=== PATIENT | female | born 1965 | race Hispanic/Latino ===

== ENCOUNTER → 2017-06-10 | Emergency (ER) ==
--- OUTSIDE RECORDS SUMMARY | 2017-06-10 05:03 | XMS REPORT ---
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 Allergies, Adverse Reactions, Alerts This patient has no known allergies or adverse reactions. Medications This patient has no known medications. Encounters Start Date/Time End Date/Time Encounter Type Admission Type Attending [facility] Care Department Encounter ID 2017-08-27 00:00:00 2017-08-27 00:00:00 Outpatient [facility] [id number] 2017-07-18 00:00:00 2017-07-18 00:00:00 Outpatient [facility] [id number] 2017-07-05 00:00:00 2017-07-05 00:00:00 Outpatient [facility] [id number] 2017-05-09 00:00:00 2017-05-09 00:00:00 Outpatient [facility] [id number] 2017-05-03 00:00:00 2017-05-03 00:00:00 Outpatient [facility] [id number] 2017-04-25 11:12:46 2017-04-25 11:12:46 Outpatient [facility] [id number] 2017-04-09 00:00:00 2017-04-09 00:00:00 Outpatient [facility] [id number] 2017-04-02 08:00:00 2017-04-02 08:00:00 Outpatient [facility] [id number] 2017-03-27 00:00:00 2017-03-27 00:00:00 Outpatient [facility] [id number] 2017-02-27 00:00:00 2017-02-27 00:00:00 Outpatient [facility] [id number] 2017-02-21 00:00:00 2017-02-21 00:00:00 Outpatient [facility] [id number] 2017-02-19 13:22:02 2017-02-19 13:22:02 Outpatient [facility] [id number] 2017-01-16 07:41:48 2017-01-16 07:41:48 Outpatient [facility] [id number] 2017-01-08 09:20:28 2017-01-08 09:20:28 Outpatient [facility] [id number] 2017-01-03 00:00:00 2017-01-03 00:00:00 Outpatient [facility] [id number] 2016-12-18 07:56:57 2016-12-18 07:56:57 Outpatient [facility] [id number] 2016-12-06 12:06:20 2016-12-06 12:06:20 Outpatient [facility] [id number] 2016-11-26 14:29:38 2016-11-26 14:29:38 Outpatient [facility] [id number] 2016-11-22 13:41:24 2016-11-22 13:41:24 Outpatient [facility] [id number] 2016-10-31 00:00:00 2016-10-31 00:00:00 Outpatient [facility] [id number] 2016-10-25 00:00:00 2016-10-25 00:00:00 Outpatient [facility] [id number] 2016-10-05 00:00:00 2016-10-05 00:00:00 Outpatient [facility] [id number] 2016-10-05 00:00:00 2016-10-05 00:00:00 Outpatient [facility] [id number] 2016-10-05 00:00:00 2016-10-05 00:00:00 Outpatient [facility] [id number] 2016-10-03 00:00:00 2016-10-03 00:00:00 Outpatient [facility] [id number] 2016-08-31 08:09:50 2016-08-31 08:09:50 Outpatient [facility] [id number] 2016-08-30 07:15:55 2016-08-30 07:15:55 Outpatient [facility] [id number] 2016-08-30 00:00:00 2016-08-30 00:00:00 Outpatient [facility] [id number] 2016-08-28 00:00:00 2016-08-28 00:00:00 Outpatient [facility] [id number]
== END | disposition left against medical advice (07) ==
LOC: FSED 05:01
DX: R10.9 Unspecified abdominal pain (principal)